=== PATIENT | female | born 1960 | race American Indian/Alaskan Native ===

== ENCOUNTER 2016-07-06 09:16 | Emergency (ER) | payer MEDICAID ==
[2016-07-06 09:32] VITALS: BP 153/104
--- NOTE | 2016-07-06 12:35 | Emergency Department Report ---
- General Chief complaint: Skin/Abscess/Foreign Body Stated complaint: BITES ON LEFT LEG Time Seen by Provider: 07/06/16 12:30 Source: patient Mode of arrival: Ambulatory Limitations: No Limitations - History of Present Illness Initial comments: 56-year-old female presents with complaint of bug bites to the left lower extremity above the left ankle approximately 2-3 days. Area is red itchy painful to touch. Denies any fever or chills. Denies any lesions or bug bites in any other part of body. Patient denies any recent travel. Her knowledge has no bug infestation at home. Patient has 3 discrete bite hawkins surrounding erythema visible left lower extremity on medial side MD complaint: insect bite/sting, other Onset/Timin -: days(s) Location: LLE (cellulitis) Severity: moderate Severity scale (0 -10): 5 Quality: aching Consistency: constant Improves with: none Worsens with: none Context: other (spectral insect bite) Associated symptoms: denies other symptoms Treatments Prior to Arrival: none - Related Data Previous Rx's Medication Instructions Recorded Last Taken Type Cephalexin [Keflex] 500 mg PO Q12HR #14 cap 07/06/16 Unknown Rx Ibuprofen [Motrin] 600 mg PO Q8H PRN #30 tablet 07/06/16 Unknown Rx Sulfamethoxazole/Trimethoprim 1 each PO BID #14 tablet 07/06/16 Unknown Rx [Bactrim DS TAB] Allergies Allergy/AdvReac Type Severity Reaction Status Date / Time No Known Allergies Allergy Unverified 07/06/16 09:26 Abscess Boil HPI - HPI Chief Complaint: Skin/Abscess/Foreign Body Stated Complaint: BITES ON LEFT LEG Time Seen by Provider: 07/06/16 12:30 Home Medications: Previous Rx's Medication Instructions Recorded Last Taken Type Cephalexin [Keflex] 500 mg PO Q12HR #14 cap 07/06/16 Unknown Rx Ibuprofen [Motrin] 600 mg PO Q8H PRN #30 tablet 07/06/16 Unknown Rx Sulfamethoxazole/Trimethoprim 1 each PO BID #14 tablet 07/06/16 Unknown Rx [Bactrim DS TAB] Allergies/Adverse Reactions: Allergies Allergy/AdvReac Type Severity Reaction Status Date / Time No Known Allergies Allergy Unverified 07/06/16 09:26 ED Review of Systems ROS: Stated complaint: BITES ON LEFT LEG Other details as noted in HPI ED Past Medical Hx - Past Medical History Additional medical history: Lower Back Injury. 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 Arthritis both knees - Surgical History Additional Surgical History: Rotator cuff, Ectopic - Social History Smoking Status: Current Every Day Smoker Substance Use Type: None - Medications Home Medications: Home Medications Medication Instructions Recorded Confirmed Last Taken Type Cephalexin [Keflex] 500 mg PO Q12HR #14 cap 07/06/16 Unknown Rx Ibuprofen [Motrin] 600 mg PO Q8H PRN #30 tablet 07/06/16 Unknown Rx Sulfamethoxazole/Trimethoprim 1 each PO BID #14 tablet 07/06/16 Unknown Rx [Bactrim DS TAB] ED Physical Exam - General Limitations: No Limitations General appearance: alert, in no apparent distress - Head Head exam: Present: atraumatic, normocephalic - Eye Eye exam: Present: normal appearance, PERRL, EOMI - ENT ENT exam: Present: mucous membranes moist - Neck Neck exam: Present: normal inspection - Respiratory Respiratory exam: Present: normal lung sounds bilaterally. Absent: respiratory distress - Cardiovascular Cardiovascular Exam: Present: regular rate, normal rhythm. Absent: systolic murmur, diastolic murmur, rubs, gallop - GI/Abdominal GI/Abdominal exam: Present: soft, normal bowel sounds - Extremities Exam Extremities exam: Present: normal inspection - Expanded Lower Extremity Exam Left Hip exam: Present: normal inspection, full ROM Upper Leg exam: Present: normal inspection, full ROM Knee exam: Present: normal inspection, full ROM Lower Leg exam: Present: tenderness (6 cm diameter area of cellulitis with 3 bug bites left lower extremity) Ankle exam: Present: normal inspection, full ROM Foot/Toe exam: Present: normal inspection, full ROM - Back Exam Back exam: Present: normal inspection - Neurological Exam Neurological exam: Present: alert, oriented X3 - Psychiatric Psychiatric exam: Present: normal affect, normal mood - Skin Skin exam: Present: warm, dry, intact, normal color. Absent: rash ED Course Vital Signs 07/06/16 09:26 Temperature 98.7 F Pulse Rate 90 Respiratory 20 Rate Blood Pressure 153/104 O2 Sat by Pulse 99 Oximetry ED Medical Decision Making - Medical Decision Making A/P: Bug bites, cellulitis 1-Bactrim and Keflex twice a day 7 days, no appreciable abscess, borders marked area approximately 6 cm in diameter 2-Motrin when necessary for pain, topical hydrocortisone cream 3-I advised patient to return to the ED if area of cellulitis expands beyond borders marked despite antibiotic use or she develops severe fever or chills or fluctuance. No drainage in area. 4- wound check 48 hours, follow-up with her primary care doctor this week Critical care attestation.: If time is entered above; I have spent that time in minutes in the direct care of this critically ill patient, excluding procedure time. ED Disposition Clinical Impression: Cellulitis of left leg Disposition: DISCHARGED TO HOME OR SELFCARE Is pt being admited?: No Does the pt Need Aspirin: No Condition: Stable Instructions: Cellulitis (ED), Insect Bite or Sting (ED) Prescriptions: Sulfamethoxazole/Trimethoprim [Bactrim DS TAB] 1 each PO BID #14 tablet Cephalexin [Keflex] 500 mg PO Q12HR #14 cap Ibuprofen [Motrin] 600 mg PO Q8H PRN #30 tablet PRN Reason: Pain Referrals: FAVIOLA QUIÑONEZ MD [Primary Care Provider] - 3-5 Days [facility] [Outside] - 3-5 Days Forms: Work/School Release Form(ED) Time of Disposition: 12:36
== END 2016-07-06 12:45 | disposition home or self-care (01) ==
LOC: ED 09:16
DX: L03.116 Cellulitis of left lower limb (principal); S80.862A Insect bite (nonvenomous), left lower leg, initial encounter; F17.200 Nicotine dependence, unspecified, uncomplicated; W57.XXXA Bitten or stung by nonvenomous insect and other nonvenomous arthropods, initial encounter; Y93.89 Activity, other specified; Y99.8 Other external cause status; Y92.89 Other specified places as the place of occurrence of the external cause
CPT/HCPCS: 99282

== ENCOUNTER 2021-07-24 12:47 | Outpatient (CLI) | payer MEDICAID ==
--- NOTE | 2021-07-24 15:45 | XRay Report ---
STANDING KNEES 1 VIEW INDICATION / CLINICAL INFORMATION: M25.569 COMPARISON: None available. FINDINGS: BONES and JOINT(S): No acute fracture or subluxation. There is mild osteoarthritis along the medial c ompartment of each knee. SOFT TISSUES: No significant abnormality. ADDITIONAL FINDINGS: None. IMPRESSION: Mild osteoarthritis of the knees. Signer Name: Roldan Pressley MD Signed: 07/24/2021 3:41 PM Workstation Name: [id number]
--- NOTE | 2021-07-24 15:53 | XRay Report ---
LUMBAR SPINE 5 VIEWS INDICATION: M54.50 COMPARISON: No relevant prior imaging study available. FINDINGS: VERTEBRAE: No acute fracture. Mild dextroscoliosis. There is grade 1 retrolisthesis of L1 on L2 and L 2 on L3. There is grade 1 anterolisthesis of L4 on L5. DISC SPACES: There are multilevel mild discogenic degenerative changes. FACET JOINTS: There is generalized facet arthropathy. SOFT TISSUES: No significant abnormality. ADDITIONAL FINDINGS: No additional significant findings. IMPRESSION: Mild lumbar spondylosis with multilevel anterolisthesis and retrolisthesis as above. Signer Name: Roldan Pressley MD Signed: 07/24/2021 3:48 PM Workstation Name: [id number]
== END 2021-07-24 12:48 | disposition home or self-care (01) ==
LOC: XRAY 12:47
PROVIDERS: ATTEND Orthopaedic Surgery
DX: M17.0 Bilateral primary osteoarthritis of knee (principal); M47.816 Spondylosis without myelopathy or radiculopathy, lumbar region; M43.16 Spondylolisthesis, lumbar region
CPT/HCPCS: 72100; 73565